=== PATIENT | female | born 1975 | race Caucasian/White ===

== ENCOUNTER 2017-02-17 21:09 | Emergency (ER) | payer OTHER ==
[~2017-02-17] VITALS: Ht 154.9 cm; Wt 46.7 kg
[2017-02-17 21:29] VITALS: BP 120/63
--- NOTE | 2017-02-18 00:30 | NUR ---
PATIENT LEFT WITHOUT BEING SEEN BY DR. Carrillo. NO FURTHER CARE PROVIDED FOR PATIENT.
== END 2017-02-18 00:30 | disposition left against medical advice (07) ==
LOC: MED 21:09
DX: Z53.21 Procedure and treatment not carried out due to patient leaving prior to being seen by health care provider (principal)

== ENCOUNTER 2017-02-18 10:08 | Emergency (ER) | payer OTHER ==
[~2017-02-18] VITALS: Ht 165.1 cm; Wt 45.5 kg
[2017-02-18 10:37] VITALS: BP 124/87
--- NOTE | 2017-02-18 10:44 | NUR ---
PATIENT TO BED#7
--- NOTE | 2017-02-18 10:44 | NUR ---
PATIENT BEING EVALUATED BY DR. SHARIF.
--- NOTE | 2017-02-18 10:45 | NUR ---
PATIENT PRESENTS TO ED WITH STAPLE REMOVAL FROM [facility]----LAC REPAIRED 01/30/2017 TETANUS GIVEN DAY OF REPAIR HX---DENIES RX--NONE . DENIES N/V/D; SKIN IS PINK/WARM/DRY; AAOX4 WITH EVEN AND STEADY GAIT; LUNGS CLEAR BL; HR EVEN AND REGULAR; PT DENIES ANY FEVER, CP, SOB, OR COUGH AT THIS TIME; PATIENT STATES PAIN OF 0/10 AT THIS TIME; VSS; PATIENT POSITIONED FOR COMFORT; HOB ELEVATED; BEDRAILS UP X2; BED DOWN. ER MD MADE AWARE OF PT STATUS.
[2017-02-18 10:56] VITALS: BP 118/76
--- NOTE | 2017-02-18 10:56 | NUR ---
Patient discharged with v/s stable. Written and verbal after care instructions given and explained. Patient verbalized understanding. Ambulatory with steady gait. All questions addressed prior to discharge. Advised to follow up with PMD.
== END 2017-02-18 10:56 | disposition home or self-care (01) ==
LOC: MED 10:08
DX: S01.01XD Laceration without foreign body of scalp, subsequent encounter (principal); W22.8XXD Striking against or struck by other objects, subsequent encounter; Y92.89 Other specified places as the place of occurrence of the external cause; Y99.8 Other external cause status
CPT/HCPCS: 99281